=== PATIENT | male | born 1980 ===

== ENCOUNTER 2019-03-08 07:06 | Day surgery (SDC) | payer OTHER ==
[~2019-03-08] VITALS: Ht 177.8 cm; Wt 81.6 kg
[2019-03-08] VITALS (12 sets, daily range): BP systolic 103–127; BP diastolic 68–85
[~2019-03-08 07:06] MED LIST: NKM; ceFAZolin 1gm IVPB IVPB ONE; celeBREX 200mg Cap **SURGERY PATIENTS ONLY ORAL ONE; oxyCONTIN 20mg tab ORAL ONE
[2019-03-08] MEDS ORDERED: NORCO 10-325 T1 EACH ORAL (08:10)
[2019-03-08] MEDS ORDERED: celeBREX 200mg Cap **SURGERY PATIENTS ONLY ORAL ONE ×2 (08:27→08:37)
[2019-03-08] MEDS ORDERED: oxyCONTIN 20mg tab ORAL ONE ×2 (08:27→08:37)
--- NOTE | 2019-03-08 09:51 | Pre-Procedure Note/Attestation ---
Pre-Procedure Note/Attestation Complete Prior to Procedure Planned Procedure: right Procedure Narrative: knee diagnostic arthroscopy, possible menisectomy Indications for Procedure Pre-Operative Diagnosis: right knee internal derangment Attestation I attest that I discussed the nature of the procedure; its benefits; risks and complications; and alternatives (and the risks and benefits of such alternatives ), prior to the procedure, with the patient (or the patient's legal liability claims representative). I attest that, if there was a reasonable possibility of needing a blood transfusion, the patient (or the patient's legal liability claims representative) was given the [facility] standardized written summary, pursuant to the [place] Blood Safety Act ([place] Health and Safety Code # 1645, as amended). I attest that I re-evaluated the patient just prior to the surgery and that there has been no change in the patient's H&P, except as documented below: Pb Cavazos MD Mar 08, 2019 09:51
--- NOTE | 2019-03-08 09:51 | Operative Note - PDOC ---
Operative Note Operative Note Pre-op Diagnosis: right knee internal derangment Procedure: see op report Post-op Diagnosis: same as pre-op plus Operative Findings: consistent w/pre-op dx studies Anesthesia: general Specimen: none Complications: none Condition: stable Estimated Blood Loss: none Implant(s) used?: No Pb Cavazos MD Mar 08, 2019 09:51
[2019-03-08] MEDS ORDERED: ePHEDrine 50mg/ml Inj ONE (10:00)
[2019-03-08] MEDS ORDERED: Sterile Water Irrig 1000ml IRRIG ONE (10:00)
[2019-03-08] MEDS ORDERED: Kenalog-40 1ml Vial ONE (10:07)
[2019-03-08] MEDS ORDERED: Ketorolac 30mg Inj ONE (10:07)
[2019-03-08] MEDS ORDERED: Duramorph PF 5mg/10ml amp ONE (10:08)
[2019-03-08] MEDS ORDERED: Lidocaine 1% 10mg/ml/Epi 0.005mg/ml 30ml vial INJ ONE (10:08)
[2019-03-08] MEDS ORDERED: Bupivacaine 0.25% Inj 30ml INJ ONE (10:08)
[2019-03-08] MEDS ORDERED: fentaNYL 100 mcg/2 mL IV ONE (10:10)
[2019-03-08] MEDS ORDERED: Duramorph PF 5mg/10ml amp IT ONE (10:35)
[2019-03-08] MEDS ORDERED: NS Irrig 4000ml IRRIG ONE (10:35)
[2019-03-08] MEDS ORDERED: Duramorph PF 5mg/10ml amp EPIDUR ONE (10:35)
[2019-03-08] MEDS ORDERED: Propofol 200mg/20ml IV ONE (10:41)
[2019-03-08] MEDS ORDERED: Metoclopramide 10mg/2ml Inj ONE (10:41)
[2019-03-08] MEDS ORDERED: Lidocaine 1% MPF 10mg/ml 5ml ONE (10:41)
--- NOTE | 2019-03-08 11:08 | Anethesia Preoperative Eval ---
Anesthesia Pre-op PMH/ROS General Date of Evaluation: Mar 08, 2019 Time of Evaluation: 10:00 Anesthesiologist: misty ASA Score: ASA 1 Mallampati Score Class I : Soft palate, uvula, fauces, pillars visible Class II: Soft palate, uvula, fauces visible Class III: Soft palate, base of uvula visible Class IV: Only hard plate visible Mallampati Classification: Class III Surgeon: henry Diagnosis: knee pain Surgical Procedure: knee scope Anesthesia History: none Family History: no anesthesia problems Allergies: Coded Allergies: No Known Allergies (Unverified , 03/08/19) Medications: see eMAR Patient NPO?: Yes NPO Date: Mar 08, 2019 NPO Time: 00:01 Past Medical History Cardiovascular: Denies: HTN, CAD, [place], valve dz, arrhythmia, other Pulmonary: Denies: asthma, COPD, TRISTAN, other Gastrointestinal/Genitourinary: Denies: GERD, CRI, ESRD, other Neurologic/Psychiatric: Denies: dementia, CVA, depression/anxiety, TIA, other Endocrine: Denies: DM, hypothyroidism, steroids, other HEENT: Denies: cataract (L), cataract (R), glaucoma, [place] (L), [place] (R), other Hematology/Immune: Denies: anemia, DVT, bleeding disorder, other Musculoskeletal/Integumentary: Denies: OA, RA, DJD, DDD, edema, other PSxH Narrative: denies Anesthesia Pre-op Phys. Exam Physician Exam Last Vital Signs Date Time Temp Pulse Resp B/P (MAP) Pulse Ox O2 Delivery O2 Flow Rate FiO2 03/08/19 08:14 98.7 79 18 115/85 97 Room Air Constitutional: NAD Neurologic: CN 2-12 intact Cardiovascular: RRR Respiratory: CTA Gastrointestinal: S/NT/ND Airway Exam Mallampati Classification 3 Mallampati Score: Class III MO: full ROM: full Dentures: no upper, no lower Anesthesia Pre-op A/P Studies Pre-op Studies: EKG - sr Risk Assessment & Plan Assessment: denies changes in health Plan: general Pre-Antibiotics Drug: ancef Given Within 1 Hr of Incision: Yes Time Given: 10:30 Aurora Hernández CRNA Mar 08, 2019 11:08
--- NOTE | 2019-03-08 11:10 | Immediate Post-Op Evaluation ---
Immediate Post-Op Evalulation Immediate Post-Op Evalulation Procedure: right knee scope Date of Evaluation: Mar 08, 2019 Time of Evaluation: 11:09 IV Fluids: 600 Blood Pressure Systolic: 119 Blood Pressure Diastolic: 75 Pulse Rate: 70 Respiratory Rate: 14 O2 Sat by Pulse Oximetry: 99 Temperature (Fahrenheit): 97.0 Nausea: No Vomiting: No Patient Status: awake, reacts, patent Hydration Status: adequate Drug: ancef Given Within 1 Hr of Incision: Yes Time Given: 10:30 Aurora Hernández CRNA Mar 08, 2019 11:10
[2019-03-08] MEDS ORDERED: fentaNYL 100 mcg/2 mL IV PRN (11:15)
[2019-03-08] MEDS ORDERED: Metoclopramide 10mg/2ml Inj IVP PRN (11:15)
--- NOTE | 2019-03-08 15:14 | 48 Hour Post Anesthesia Eval ---
Post Anesthesia Evaluation Procedure: right knee scope Date of Evaluation: Mar 08, 2019 Time of Evaluation: 15:14 Blood Pressure Systolic: 106 0: 70 Pulse Rate: 70 Respiratory Rate: 14 O2 Sat by Pulse Oximetry: 98 Airway: patent Nausea: No Vomiting: No Hydration Status: adequate Cardiopulmonary Status: stable Mental Status/LOC: patient returned to baseline Follow-up Care/Observations: na Post-Anesthesia Complications: none Follow-up care needed: N/A Aurora Hernández CRNA Mar 08, 2019 15:14
[2019-03-08] MEDS ORDERED: HYDROmorphone 1mg/ml Carpuject SUBQ PRN (19:01)
[2019-03-08] MEDS ORDERED: Tylenol #3 tab (300mg/30mg) ORAL PRN (19:01)
[2019-03-08] MEDS ORDERED: HYDROcodone/Acetamin 5/325 tab ORAL PRN (19:01)
[2019-03-08] MEDS ORDERED: D5 1/2NS 1,000 ML IV SCH (19:01)
--- NOTE | 2019-03-08 20:00 | Operative Note - Dictated ---
DATE OF OPERATION: 03/08/2019 PREOPERATIVE DIAGNOSES: 1. Right knee ACL sprain. 2. Posterior horn medial meniscus tear. 3. Intrameniscal degeneration, lateral meniscus. POSTOPERATIVE DIAGNOSES: 1. Right knee intrameniscal degeneration, medial and lateral meniscus. 2. Hypertrophic synovial tissue medial and lateral patellofemoral compartment. PROCEDURE: 1. Right knee diagnostic arthroscopy. 2. Synovectomy of lateral patellofemoral compartment. SURGEON: Pb Cavazos M.D. ANESTHESIA: MAC with local. INDICATION FOR PROCEDURE: The patient is a pleasant gentleman, who had a significant injury to his right knee. He had sprain of the ACL with possible meniscal tears. He failed conservative treatment, elected to undergo right knee diagnostic arthroscopy, possible medial and lateral meniscectomy. Risks, limitations, expectations, and complications of the procedure were discussed in detail. All questions addressed. DESCRIPTION OF PROCEDURE: After informed consent was obtained, the patient was brought to the operating room. The patient was placed under general anesthesia. The right leg was prepped and draped in a sterile manner. Time-out was performed. An inferolateral stab incision was then done and the trocar was introduced into the knee joint. There was significant resistance introducing the trocar through the lateral compartment and the patellofemoral compartment. There was hypertrophic synovial tissue in the patellofemoral compartment. No chondral damage of the patellofemoral compartment. Medial gutter was free of loose bodies. There was a thickening of the medial plica. Medial compartment was entered. Medial working portal was established. At this point, the synovectomy and excision of the fat pad was performed to better visualize the anterior portion of the medial compartment. At this point, there was intrameniscal degeneration of the posterior horn. Meniscus was probed. There was no gross extension of the tear into the surface. There was no chondral damage in the medial compartment. The intercondylar notch was entered. The hypertrophic ligamentum mucosa and synovial tissue was debrided to better visualize the ACL. The ACL was probed, noted to be intact. The lateral compartment was entered, free from the meniscal chondral damage. At this point, the camera was placed in the patellofemoral compartment. Excision of the fat pad and synovectomy was completed. Once that was done, the instruments were removed. Portal sites were closed with 3-0 Monocryl sutures. Steri-Strips and a sterile dressing were applied. The patient was awoken and taken to recovery room with stable vital signs. ESTIMATED BLOOD LOSS: None. COMPLICATIONS: None. SPECIMENS: None. IMPLANTS: None. Pb Cavazos M.D. DR: HARRY JOB#: [id number] CC:
== END 2019-03-08 12:55 | disposition home or self-care (01) ==
LOC: SUR 07:06
DX: M67.261 Synovial hypertrophy, not elsewhere classified, right lower leg (principal); M23.361 Other meniscus derangements, other lateral meniscus, right knee; M23.331 Other meniscus derangements, other medial meniscus, right knee
CPT/HCPCS: 29875; J0690; J1885; J2405; J2704; J2765; J3010; J3301; J3490; 94003; 94150